=== PATIENT | male | born 1980 | race Caucasian/White ===

== ENCOUNTER 2022-11-22 15:42 | Inpatient (IN) | payer OTHER ==
[2022-11-22] MEDS ORDERED: ACETAMINOPHEN 1000 MG/100 ML BAG IVPB ONE (16:13)
[2022-11-22] MEDS ORDERED: ONDANSETRON 4 MG/2 ML VIAL IVPUSH ONE ×2 (16:13→18:34)
[2022-11-22] MEDS ORDERED: SODIUM CHLORIDE 0.9% 500 ML INFUS.BAG IV ONE (16:13)
[2022-11-22] MEDS ORDERED: FAMOTIDINE 20 MG/50 ML IVPB 20 MG/50 ML MG IVPB ONE ×2 (16:13→16:35)
[2022-11-22] MEDS ORDERED: ONDANSETRON 4 MG/2 ML VIAL ONE ×2 (16:35→18:54)
[2022-11-22] MEDS ORDERED: ACETAMINOPHEN INJECTION 100 ML IVPB ONE (16:35)
[2022-11-22 16:43] LABS: BASO % 0.4 % (0-2.0); EOS % 0.2 % (0-4.5); HEMATOCRIT 39.8 % (35.4-49); HEMOGLOBIN 12.4 GM/dL (11.7-16.9); LYMPH % 6.3 % (8-40); MCH 20.6 pg (25.7-33.7); MCHC 31.1 g/dl (32.0-35.9); MEAN CELL VOLUME 66.2 fl (80-96); MEAN PLT VOLUME 9.2 fl (7.5-11.1); MONO % 7.5 % (3.8-10.2); NEUT % 85.6 % (42.8-82.8); PLATELET COUNT 255 10^3/uL (134-434); RBC 6.01 M/mm3 (4.00-5.60); RDW 18.2 % (11.9-15.9); WHITE BLOOD COUNT 14.2 K/mm3 (4.0-10.0)
[2022-11-22 17:03] LABS: POTASSIUM 3.8 mmol/L (3.5-5.1)
[2022-11-22 17:06] LABS: ALBUMIN 3.8 g/dl (3.4-5.0); BLOOD UREA NITROGEN 17.3 mg/dL (7-18); MAGNESIUM 1.8 mg/dL (1.8-2.4)
[2022-11-22 17:10] LABS: BILIRUBIN,TOTAL 1.4 mg/dL (0.2-1)
[2022-11-22 17:11] LABS: TOT PROT 7.8 g/dl (6.4-8.2)
[2022-11-22 18:04] LABS: ANISOCYTOSIS 1+; MACROCYTOSIS 0; PLATELET ESTIMATE NORMAL
[2022-11-22 21:52] LABS: PH,URINE 6.5 (5.0-8.0); URINE APPEARANCE CLEAR; URINE BILIRUBIN NEGATIVE (NEGATIVE); URINE COLOR YELLOW; URINE GLUCOSE (UA) 3+ (NEGATIVE); URINE KETONE NEGATIVE (NEGATIVE); URINE LEUK ESTERASE NEGATIVE (NEGATIVE); URINE NITRITE NEGATIVE (NEGATIVE); URINE PROTEIN TRACE (NEGATIVE); URINE UROBILINOGEN 0.2 mg/dL (0.2-1.0)
[2022-11-22 22:07] LABS: INR 1.03 (0.83-1.09); PROTHROMBIN TIME (PATIENT) 11.9 SEC (9.7-13.0)
[2022-11-22 22:09] LABS: ACTIVATED PTT 28.3 SECONDS (25.2-36.5)
[2022-11-22] MEDS ORDERED: LIDOCAINE HCL 2% JELLY 10 ML CARTRIDGE UR ONE (22:31)
[2022-11-22] MEDS ORDERED: LIDOCAINE HCL 2% JELLY 11 ML TP ONE (22:32)
[2022-11-22] MEDS ORDERED: TACROLIMUS 1.5 MG PO SCH (23:56)
[2022-11-23] MEDS ORDERED: MYCOPHENOLATE MOFETIL 500 MG TABLET PO SCH (00:30)
[2022-11-23] MEDS ORDERED: MYCOPHENOLATE MOFETIL 250 MG CAPSULE PO ONE (02:03)
[2022-11-23] MEDS ORDERED: TACROLIMUS 1.5 MG PO SCH (02:08)
[2022-11-23] MEDS ORDERED: TACROLIMUS 0.5 MG CAPSULE PO ONE (02:45)
[2022-11-23] MEDS: SODIUM CHLORIDE 1,000 ML IV SCH ×2 (03:04→16:10)
[2022-11-23 03:39] VITALS: BMI 37.0
[2022-11-23] MEDS: INSULIN SLIDING SCALE (NOVOLOG) 1 VIAL SQ SCH ×4 (06:47→22:00)
[2022-11-23 09:43] LABS: BASO % 0.1 % (0-2.0); EOS % 0.4 % (0-4.5); HEMATOCRIT 37.8 % (35.4-49); HEMOGLOBIN 11.6 GM/dL (11.7-16.9); LYMPH % 7.4 % (8-40); MCH 20.6 pg (25.7-33.7); MCHC 30.6 g/dl (32.0-35.9); MEAN CELL VOLUME 67.4 fl (80-96); MEAN PLT VOLUME 9.9 fl (7.5-11.1); MONO % 8.1 % (3.8-10.2); PLATELET COUNT 221 10^3/uL (134-434); RBC 5.61 M/mm3 (4.00-5.60); RDW 17.8 % (11.9-15.9)
[2022-11-23 09:54] LABS: POTASSIUM 3.9 mmol/L (3.5-5.1)
[2022-11-23] MEDS ORDERED: TACROLIMUS 1 MG PO SCH (10:00)
[2022-11-23] MEDS ORDERED: CALCIUM 500MG/VIT-D 200 UNITS COMBO TABLET (FP) PO SCH (10:00)
[2022-11-23] MEDS ORDERED: TACROLIMUS PO SCH (10:00)
[2022-11-23] MEDS ORDERED: OMEGA-3 ACID ETHYL ESTERS (FATTY-ACIDS) 1 GM CAPSULE (FP) PO SCH (10:00)
[2022-11-23] MEDS ORDERED: MAGNESIUM OXIDE 400 MG TABLET (FP) PO SCH (10:00)
[2022-11-23] MEDS ORDERED: VALSARTAN 80 MG TABLET PO SCH (10:00)
[2022-11-23] MEDS ORDERED: ASPIRIN COATED 81 MG TABLET.EC PO SCH (10:00)
[2022-11-23] MEDS: PHENOL 177 ML SPRAY BOTTLE MM SCH ×3 (10:04→21:51)
[2022-11-23] MEDS: MYCOPHENOLATE MOFETIL 250 MG CAPSULE PO SCH ×2 (10:06→21:51)
[2022-11-23] MEDS: amLODIPine BESYLATE 5 MG TABLET (FP) PO SCH (10:06)
[2022-11-23] MEDS: ENOXAPARIN NA (PORCINE) 40 MG/0.4 ML DISP.SYRIN SQ SCH (10:07)
[2022-11-23 10:13] LABS: ALBUMIN 3.5 g/dl (3.4-5.0); BLOOD UREA NITROGEN 17.3 mg/dL (7-18); CALCIUM 8.8 mg/dL (8.5-10.1); MAGNESIUM 1.8 mg/dL (1.8-2.4)
[2022-11-23 10:16] LABS: CREATININE 0.8 mg/dL (0.55-1.3); PHOSPHOROUS 3.2 mg/dL (2.5-4.9)
[2022-11-23 10:18] LABS: TOT PROT 7.4 g/dl (6.4-8.2)
[2022-11-23] MEDS ORDERED: ACETAMINOPHEN 1000 MG/100 ML BAG IVPB PRN (14:03)
[2022-11-23] MEDS: TACROLIMUS 0.5 MG CAPSULE PO SCH (15:39)
[2022-11-23] MEDS ORDERED: MAGNESIUM SULF 50% (8.12 MEQ/2 ML-1 GM VIAL) IVPB ONE (15:46)
[2022-11-23] MEDS: DEXTROSE 5%-0.45% SALINE 1,000 ML IV SCH (16:45)
[2022-11-23] MEDS: TACROLIMUS ANHYDROUS 1 MG CAPSULE PO SCH (21:51)
[2022-11-23] MEDS ORDERED: ATORVASTATIN CA 40 MG TABLET (FP) PO SCH (22:00)
[2022-11-24] MEDS: PHENOL 177 ML SPRAY BOTTLE MM SCH ×3 (05:58→22:04)
[2022-11-24] MEDS: INSULIN SLIDING SCALE (NOVOLOG) 1 VIAL SQ SCH ×4 (06:34→22:19)
[2022-11-24 10:00] LABS: HEMATOCRIT 38.9 % (35.4-49); HEMOGLOBIN 12.1 GM/dL (11.7-16.9); MCH 20.5 pg (25.7-33.7); MCHC 31.1 g/dl (32.0-35.9); MEAN CELL VOLUME 65.9 fl (80-96); PLATELET COUNT 231 10^3/uL (134-434); WHITE BLOOD COUNT 11.6 K/mm3 (4.0-10.0)
[2022-11-24] MEDS: MYCOPHENOLATE MOFETIL 250 MG CAPSULE PO SCH ×2 (10:05→22:04)
[2022-11-24] MEDS: amLODIPine BESYLATE 5 MG TABLET (FP) PO SCH (10:06)
[2022-11-24] MEDS: ENOXAPARIN NA (PORCINE) 40 MG/0.4 ML DISP.SYRIN SQ SCH (10:06)
[2022-11-24] MEDS: TACROLIMUS 0.5 MG CAPSULE PO SCH (10:06)
[2022-11-24 10:23] LABS: POTASSIUM 4.2 mmol/L (3.5-5.1)
[2022-11-24 10:25] LABS: CALCIUM 9.3 mg/dL (8.5-10.1)
[2022-11-24 10:26] LABS: BLOOD UREA NITROGEN 23.3 mg/dL (7-18); MAGNESIUM 1.9 mg/dL (1.8-2.4)
[2022-11-24 10:29] LABS: CREATININE 0.9 mg/dL (0.55-1.3); PHOSPHOROUS 4.1 mg/dL (2.5-4.9)
[2022-11-24] MEDS: PANTOPRAZOLE SODIUM 40 MG VIAL IVPUSH SCH ×2 (12:49→22:04)
[2022-11-24] MEDS: ACETAMINOPHEN 1000 MG/100 ML BAG IVPB PRN (15:59)
[2022-11-24] MEDS ORDERED: SODIUM CHLORIDE 1,000 ML IV SCH (16:30)
[2022-11-24] MEDS: DEXTROSE 5%-0.45% SALINE 1,000 ML IV SCH (16:35)
[2022-11-24] MEDS ORDERED: ONDANSETRON 4 MG/2 ML VIAL IVPUSH ONE ×2 (16:47→20:18)
[2022-11-24] MEDS ORDERED: ACETAMINOPHEN 1000 MG/100 ML BAG IVPB ONE (20:15)
[2022-11-24 21:12] LABS: EOS % 0.1 % (0-4.5); HEMOGLOBIN 13.3 GM/dL (11.7-16.9); LYMPH % 2.7 % (8-40); MCH 20.5 pg (25.7-33.7); MEAN CELL VOLUME 66.2 fl (80-96); MEAN PLT VOLUME 9.6 fl (7.5-11.1); MONO % 10.4 % (3.8-10.2); NEUT % 86.8 % (42.8-82.8); PLATELET COUNT 280 10^3/uL (134-434); RBC 6.49 M/mm3 (4.00-5.60); RDW 18.4 % (11.9-15.9); WHITE BLOOD COUNT 14.4 K/mm3 (4.0-10.0)
[2022-11-24] MEDS: TACROLIMUS ANHYDROUS 1 MG CAPSULE PO SCH (22:08)
[2022-11-25 00:19] LABS: POTASSIUM 4.3 mmol/L (3.5-5.1)
[2022-11-25 00:21] LABS: ALBUMIN 3.6 g/dl (3.4-5.0); BLOOD UREA NITROGEN 26.8 mg/dL (7-18)
[2022-11-25 00:24] LABS: CREATININE 0.9 mg/dL (0.55-1.3)
[2022-11-25 00:26] LABS: BILIRUBIN,TOTAL 2.1 mg/dL (0.2-1)
[2022-11-25] MEDS: ACETAMINOPHEN 1000 MG/100 ML BAG IVPB PRN ×3 (02:21→22:12)
[2022-11-25] MEDS: DEXTROSE 5%-0.45% SALINE 1,000 ML IV SCH ×3 (05:42→19:03)
[2022-11-25] MEDS: INSULIN SLIDING SCALE (NOVOLOG) 1 VIAL SQ SCH ×4 (07:08→21:36)
[2022-11-25] MEDS: PANTOPRAZOLE SODIUM 40 MG VIAL IVPUSH SCH ×2 (10:05→21:18)
[2022-11-25] MEDS: amLODIPine BESYLATE 5 MG TABLET (FP) PO SCH (10:05)
[2022-11-25] MEDS: MYCOPHENOLATE MOFETIL 250 MG CAPSULE PO SCH (10:08)
[2022-11-25] MEDS: TACROLIMUS 0.5 MG CAPSULE PO SCH (10:09)
[2022-11-25 11:10] LABS: HEMATOCRIT 39.6 % (35.4-49); HEMOGLOBIN 12.5 GM/dL (11.7-16.9); MCH 20.9 pg (25.7-33.7); MCHC 31.6 g/dl (32.0-35.9); MEAN CELL VOLUME 66.1 fl (80-96); MEAN PLT VOLUME 9.7 fl (7.5-11.1); PLATELET COUNT 220 10^3/uL (134-434); RBC 5.99 M/mm3 (4.00-5.60); RDW 18.2 % (11.9-15.9); WHITE BLOOD COUNT 9.2 K/mm3 (4.0-10.0)
[2022-11-25 11:33] LABS: POTASSIUM 4.1 mmol/L (3.5-5.1)
[2022-11-25 11:49] LABS: ALBUMIN 3.6 g/dl (3.4-5.0); BLOOD UREA NITROGEN 23.3 mg/dL (7-18); CALCIUM 8.9 mg/dL (8.5-10.1)
[2022-11-25 11:52] LABS: BILIRUBIN,DIRECT 0.5 mg/dL (0.0-0.2); BILIRUBIN,TOTAL 1.8 mg/dL (0.2-1); CREATININE 0.9 mg/dL (0.55-1.3); PHOSPHOROUS 3.7 mg/dL (2.5-4.9)
[2022-11-25 11:55] LABS: TOT PROT 7.5 g/dl (6.4-8.2)
[2022-11-25 12:02] LABS: MAGNESIUM 2.1 mg/dL (1.8-2.4)
[2022-11-25] MEDS: ONDANSETRON 4 MG/2 ML VIAL IVPUSH PRN (21:18)
[2022-11-25] MEDS ORDERED: INSULIN (NOVOLOG) ASPART 100 UNITS/ML 10ML VIAL ONE (21:34)
[2022-11-25] MEDS: TACROLIMUS ANHYDROUS 1 MG CAPSULE PO SCH (21:36)
[2022-11-25] MEDS: MYCOPHENOLATE MOFETIL 500 MG TABLET PO SCH ×2 (21:36→21:53)
[2022-11-26] MEDS: DEXTROSE 5%-0.45% SALINE 1,000 ML IV SCH (06:52)
[2022-11-26] MEDS: INSULIN SLIDING SCALE (NOVOLOG) 1 VIAL SQ SCH ×4 (06:59→22:05)
[2022-11-26] MEDS: PANTOPRAZOLE SODIUM 40 MG VIAL IVPUSH SCH ×2 (10:21→21:51)
[2022-11-26] MEDS: amLODIPine BESYLATE 5 MG TABLET (FP) PO SCH (10:21)
[2022-11-26] MEDS: TACROLIMUS 0.5 MG CAPSULE PO SCH (10:22)
[2022-11-26] MEDS: MYCOPHENOLATE MOFETIL 500 MG TABLET PO SCH ×2 (10:22→21:51)
[2022-11-26 11:30] LABS: HEMOGLOBIN 11.6 GM/dL (11.7-16.9); MCH 21.3 pg (25.7-33.7); MCHC 32.2 g/dl (32.0-35.9); MEAN CELL VOLUME 66.1 fl (80-96); MEAN PLT VOLUME 9.1 fl (7.5-11.1); PLATELET COUNT 195 10^3/uL (134-434); RBC 5.45 M/mm3 (4.00-5.60); RDW 18.1 % (11.9-15.9); WHITE BLOOD COUNT 7.4 K/mm3 (4.0-10.0)
[2022-11-26 11:43] LABS: POTASSIUM 3.7 mmol/L (3.5-5.1)
[2022-11-26 12:15] LABS: BLOOD UREA NITROGEN 17.5 mg/dL (7-18)
[2022-11-26 12:16] LABS: ALBUMIN 3.1 g/dl (3.4-5.0); CALCIUM 8.4 mg/dL (8.5-10.1); MAGNESIUM 1.8 mg/dL (1.8-2.4)
[2022-11-26 12:19] LABS: CREATININE 0.8 mg/dL (0.55-1.3); PHOSPHOROUS 2.2 mg/dL (2.5-4.9)
[2022-11-26 12:20] LABS: BILIRUBIN,TOTAL 1.5 mg/dL (0.2-1); TOT PROT 6.8 g/dl (6.4-8.2)
[2022-11-26] MEDS: ACETAMINOPHEN 1000 MG/100 ML BAG IVPB PRN ×2 (15:00→21:00)
[2022-11-26 15:04] VITALS: RESP 18
[2022-11-26] MEDS ORDERED: SODIUM PHOSPHATE - 30 MM in SODIUM CHLORIDE 500 ML IVPB ONE (15:53)
[2022-11-26] MEDS: TACROLIMUS ANHYDROUS 1 MG CAPSULE PO SCH (21:51)
[2022-11-27] MEDS ORDERED: KETOROLAC TROMETHAMINE 15 MG/ML VIAL IVPUSH ONE (03:50)
[2022-11-27] MEDS: INSULIN SLIDING SCALE (NOVOLOG) 1 VIAL SQ SCH ×3 (06:29→16:46)
[2022-11-27] MEDS ORDERED: ACETAMINOPHEN 325 MG TABLET (FP) PO PRN (08:59)
[2022-11-27] MEDS: MYCOPHENOLATE MOFETIL 500 MG TABLET PO SCH (09:17)
[2022-11-27] MEDS: TACROLIMUS 0.5 MG CAPSULE PO SCH (09:17)
[2022-11-27] MEDS: amLODIPine BESYLATE 5 MG TABLET (FP) PO SCH (09:18)
[2022-11-27] MEDS: PANTOPRAZOLE SODIUM 40 MG VIAL IVPUSH SCH (09:19)
[2022-11-27] MEDS: ONDANSETRON 4 MG/2 ML VIAL IVPUSH PRN (09:52)
[2022-11-27 10:17] LABS: HEMOGLOBIN 11.6 GM/dL (11.7-16.9); MCHC 32.3 g/dl (32.0-35.9); PLATELET COUNT 200 10^3/uL (134-434); RBC 5.53 M/mm3 (4.00-5.60); RDW 18.1 % (11.9-15.9); WHITE BLOOD COUNT 7.4 K/mm3 (4.0-10.0)
[2022-11-27 10:31] LABS: POTASSIUM 3.5 mmol/L (3.5-5.1)
[2022-11-27 10:38] LABS: BLOOD UREA NITROGEN 16.2 mg/dL (7-18); CALCIUM 8.3 mg/dL (8.5-10.1)
[2022-11-27 10:39] LABS: MAGNESIUM 1.6 mg/dL (1.8-2.4)
[2022-11-27 10:40] LABS: ALBUMIN 3.2 g/dl (3.4-5.0)
[2022-11-27 10:42] LABS: CREATININE 0.8 mg/dL (0.55-1.3); PHOSPHOROUS 3.5 mg/dL (2.5-4.9)
[2022-11-27 10:45] LABS: TOT PROT 6.8 g/dl (6.4-8.2)
[2022-11-27] MEDS ORDERED: DEXTROSE 5%-0.45% SALINE 1,000 ML IV SCH (12:15)
[2022-11-27] MEDS ORDERED: MAGNESIUM 2GM/50ML STERILE WATER IVPB IVPB ONE (13:21)
[2022-11-27 14:20] VITALS: BP 127/80; PULSE 91; TEMP 98.7
== END 2022-11-27 18:30 | disposition short-term general hospital (02) | DRG 252 ==
LOC: JER 15:42 → JERBED 20:59 → J6S 11-23 02:35
PROVIDERS: ADMIT Internal Medicine; ATTEND Internal Medicine
DX: K91.31 Postprocedural partial intestinal obstruction (principal); Y83.8 Other surgical procedures as the cause of abnormal reaction of the patient, or of later complication, without mention of misadventure at the time of the procedure; Z94.1 Heart transplant status; I10 Essential (primary) hypertension; E78.5 Hyperlipidemia, unspecified; E11.9 Type 2 diabetes mellitus without complications; D72.829 Elevated white blood cell count, unspecified; R00.0 Tachycardia, unspecified; I42.8 Other cardiomyopathies
CPT/HCPCS: 0241U-QW; 36415; 71045-TC-FY; 74018-TC-FY; 74019-TC-FY; 74177-TC; 74251-TC-FY; 76705-TC; 80048; 80053; 80197; 81003; 82248; 82271; 82962; 83036; 83605; 83690; 83735; 84100; 85025; 85027; 85610; 85730; 87040; 87086; 93005; 93010; 99285-25; J7517; Q9967